=== PATIENT | male | born 1960 | race Caucasian/White ===

== ENCOUNTER 2021-01-29 19:41 | Emergency (ER) | payer OTHER | END 2021-01-29 20:09 | disposition home or self-care (01) | LOC: ERS 19:41 | DX: S00.01XA Abrasion of scalp, initial encounter (principal); I10 Essential (primary) hypertension; F17.210 Nicotine dependence, cigarettes, uncomplicated; V59.40XA Driver of pick-up truck or van injured in collision with unspecified motor vehicles in traffic accident, initial encounter | CPT/HCPCS: 93005 ==